=== PATIENT | female | born 2000 | race Caucasian/White ===

== ENCOUNTER 2022-11-02 02:39 | Inpatient (IN) ==
[2022-11-02] MEDS ORDERED: OXYTOCIN 30 UNITS/500 ML BAG IV PRN ×2 (03:31→12:01)
[2022-11-02] MEDS ORDERED: LIDOCAINE 1% LOCAL 20 ML VIAL INFIL PRN (03:31)
--- NOTE | 2022-11-02 03:35 | History & Physical Report ---
Date of Service November 02, 2022 Assessment & Plan (1) with 39 completed weeks gestation: Plan gross srom. admit. pitocin as desires. pit as needed. fetus category one. anticipate . History of Present Illness Chief Complaint: lof and contractions Primary Care Provider: NO PCP Patient is a 22yowf with iup at 39 6/7 weeks who presents to labor and delivery after having a gush of fluid about 1:30. Pad was dry on admission. No vb. +fm. Patient laid down for spec exam, had a contractions and leaked clear fluid. SSE positive. and Delivery Plans Obesity (BMI 40 and higher @ beginning of ) BMI 42 *Growth US @ 32wks *Weekly NSTs @ 34wks *BMI 40 or greater offer detailed/level II anatomy at [facility] -Undecided *BMI 50 or greater scheduled detailed/level II anatomy at [facility] Need for Rhogam due to RH Negaitve Mother. *Rhogam given 03/01/22 in ED *Rhogam given 08/17/22 OB Labs: Antibody Screen NEGATIVE 08/17/22 Hemoglobin 11.6 g/dl (12.0-16.0) L 08/17/22 Hematocrit 35.5 % (37.0-47.0) L 08/17/22 Rubella IgG Antibody Immune (Immune) 03/23/22 Rapid Plasma Reagin Nonreactive (Nonreactive) 03/23/22 Hepatitis B Surface Antigen. NON-REACTIVE (NON-REACTIVE) 03/23/22 Hepatitis C Antibody (EIA) NON-REACTIVE (NON-REACTIVE) 03/23/22 HIV (1&2) Ag and Ab Confirmation NON-REACTIVE (NON-REACTIVE) 03/23/22 Glucose 1 Hour 50 gm Load 124 mg/dl (70-130) 08/17/22 OB Optional Labs: Chlamydia trachomatis RNA Not Detected (NotDetected) 03/23/22 Neisseria gonorrhoeae RNA Not Detected (NotDetected) 03/23/22 Labs Reviewed: 03/01/22- HGB-11.3 HCT-34.4 RCV-87.1 Plt Count-325 Blood Type and screen-B Negative cfdna-low risk--mln gbs neg Allergies Allergy/AdvReac Type Severity Reaction Status Date / Time No Known Allergies Allergy Verified 10/26/22 09:57 Home Medications Medication Instructions Recorded Confirmed Type prenat.vits,tej,xwc-kvwd-kwubz 1 tab PO DAILY 03/06/22 11/02/22 History Patient History Medical History (Updated 11/02/22 @ 03:38 by Jeniffer Winn MD, FACOG) Obesity affecting Surgical History S/P tonsillectomy Family History Sister ADHD Social History Smoking Status: Never smoker Do You Dip or Chew Tobacco: No; Hx Alcohol Use: No Hx Substance Use: No Preferred Language: Beninese Communication Ability: Effective Plating Equipment Tender Required: No Beliefs That Will Affect Care: None marital status: marital status details: Kevin (22) [phone] Current Living Situation: Spouse Current Living Situation Comment: lives with spouse, cats, spouse to change lit ter. current occupational status: employed current occupation: [employer]. Other Information That Helps Us Care for You: No Feels Safe at Home: Yes Safety Concerns: Feels Safe At This Time Assistive Devices: None OB History g1--present COMPENSATION EXPERT History noncontributory Physical Exam Constitutional: WD/WN, vitals as above Gastrointestinal (Abdomen): obese, gravid, nt Psychiatric: A+Ox3, euthymic affect Genitourinary: sse--+pool sve--1/75/-2 toco--q4-5min efm--130s with mod variablity, accels to 160s, no decels Results & Data Vital Signs (Past 12 Hours) Vital Signs Temp Pulse Resp BP 11/02/22 03:00 37.3 C 18 11/02/22 02:57 82 119/62 Coding Level of Care Code None Diagnoses with 39 completed weeks gestation Z3A.39
--- NOTE | 2022-11-02 07:01 | Labor Progress Brief Note ---
Date of Service November 02, 2022 Subjective Patient notes contractions more painful. Assessment & Plan (1) with 39 completed weeks gestation: Plan making change, cont current management. fetus category one. Admission and Anticipated Discharge Date Admission Date: November 02, 2022 Physical Exam Physical Exam: cx--3/-2 toco--q2-4min efm--130s wtih mod variability, accels to 160s, no decels. Results & Data Vital Signs (Past 12 Hours) Vital Signs Temp Pulse Resp BP 11/02/22 03:00 37.3 C 18 11/02/22 05:29 18 11/02/22 05:29 36.8 C 18 11/02/22 02:57 82 119/62 Coding Level of Care Code None Diagnoses with 39 completed weeks gestation Z3A.39
[2022-11-02] MEDS: LACTATED RINGER'S 1,000 ML IV PRN ×2 (08:20→23:24)
[2022-11-02 08:58] LABS: Hematocrit (blood only) 34.1 % (37.0-47.0); Hemoglobin 11.5 g/dl (12.0-16.0); Mean Corpuscular Hemoglobin 28.9 pg (25.0-34.0); Mean Corpuscular Hgb Conc 33.7 g/dL (32.0-36.0); Mean Corpuscular Volume 85.7 fL (80.0-100.0); Mean Platelet Volume 10.6 fL (9.4-12.4); Platelet Count 310 K/uL (130-400); RDW Coefficient of Variation 13.6 % (11.5-14.5); RDW Standard Deviation 42.5 fL (36.4-46.3); Red Blood Count 3.98 M/uL (4.20-5.40); White Blood Count 13.92 K/ul (4.8-10.8)
--- NOTE | 2022-11-02 12:05 | Labor Progress Brief Note ---
Date of Service November 02, 2022 Subjective Reason For Note: Routine Evaluation Assessment & Plan (1) with 39 completed weeks gestation: (2) SROM (spontaneous rupture of membranes): Plan Serenity is a 22-year-old at 39 weeks 6 days gestational with spontaneous rupture of membranes. 1. Fetus: Cat 1 2. Labor: Cervix unchanged over 5 hours. Recommended oxytocin which patient was agreeable to. 3. GBS Negative 4. Vitals: WNL Admission and Anticipated Discharge Date Admission Date: November 02, 2022 Physical Exam Genitourinary: Manual OB Exam: + cervical dilation 3 cm, + cervical effacement 70%, + station -2 and + amniotic fluid clear OB Exam Monitor Tracing: + external FHT monitor used, + external uterine monitor used, + category I and + normal FHT variability; no early decelerations present, no late decelerations present and no variable decelerations Results & Data Vital Signs (Past 12 Hours) Vital Signs Temp Pulse Resp BP 11/02/22 03:00 37.3 C 18 11/02/22 08:25 20 11/02/22 08:25 37.0 C 20 11/02/22 07:00 37.3 C 69 20 124/75 11/02/22 05:29 18 11/02/22 05:29 36.8 C 18 11/02/22 02:57 82 119/62 Coding Level of Care Code None Diagnoses with 39 completed weeks gestation Z3A.39 SROM (spontaneous rupture of membranes)
[2022-11-02] MEDS ORDERED: CALCIUM CARBONATE 500 MG CHEWABLE TAB PO PRN (13:23)
[2022-11-02] MEDS ORDERED: NALBUPHINE HCL INJ 10 MG/ML AMP IV PRN (13:59)
[2022-11-02] MEDS ORDERED: SODIUM CHLORIDE 0.9% PF INJ 10 ML VIAL ONE (13:59)
[2022-11-02] MEDS ORDERED: SODIUM CHLORIDE 0.9% PF INJ 10 ML VIAL EPI PRN (13:59)
[2022-11-02] MEDS ORDERED: fentaNYL citrate PF 100 MCG/2 ML VIAL ONE (13:59)
[2022-11-02] MEDS ORDERED: LIDOCAINE 2% MPF LOCAL 5 ML VIAL EPI PRN (13:59)
[2022-11-02] MEDS ORDERED: fentaNYL citrate PF 100 MCG/2 ML VIAL EPI STA (13:59)
[2022-11-02] MEDS ORDERED: diphenhydrAMINE 50 MG/ML VIAL IV PRN (13:59)
[2022-11-02] MEDS ORDERED: ONDANSETRON INJ 2 MG/ML 2 ML VIAL IV PRN (13:59)
[2022-11-02] MEDS ORDERED: ROPIVACAINE 0.5% PF 5 MG/ML 20 ML VIAL EPI PRN (13:59)
[2022-11-02] MEDS ORDERED: NALOXONE HCL 0.4 MG/1 ML VIAL/CARP IV PRN (13:59)
[2022-11-02] MEDS ORDERED: ePHEDrine sulfate 50 MG/ML AMP ONE (13:59)
[2022-11-02] MEDS ORDERED: BUPIVACAINE 0.25% PF 30 ML VIAL EPI PRN (13:59)
[2022-11-02] MEDS ORDERED: ePHEDrine sulfate 50 MG/ML AMP IV PRN (13:59)
[2022-11-02] MEDS ORDERED: fentaNYL 2MCG/ML ROPIVACAINE 1.25MG/ML 100 ML BAG EPI PRN (13:59)
[2022-11-02] MEDS ORDERED: NALOXONE HCL 1 MG in SODIUM CHLORIDE 0.9% 1000ML 1,000 ML IV PRN (13:59)
[2022-11-02] MEDS ORDERED: SODIUM CHLORIDE 0.9% PF INJ 10 ML VIAL EPI STA (13:59)
[2022-11-02] MEDS ORDERED: BUPIVACAINE 0.25% PF 30 ML VIAL EPI STA (13:59)
[2022-11-02] MEDS ORDERED: LIDOCAINE 2%/EPINEPHRINE 1:200,000 20 ML PF EPI STA (13:59)
[2022-11-02] MEDS ORDERED: fentaNYL citrate PF 100 MCG/2 ML VIAL EPI PRN (13:59)
[2022-11-02] MEDS ORDERED: LIDOCAINE 2%/EPINEPHRINE 1:200,000 20 ML PF ONE ×2 (14:00→23:22)
[2022-11-02] MEDS ORDERED: BUPIVACAINE 0.25% PF 30 ML VIAL ONE (14:00)
[2022-11-02] MEDS ORDERED: fentaNYL 2MCG/ML ROPIVACAINE 1.25MG/ML 100 ML BAG EPI ONE (14:00)
--- NOTE | 2022-11-02 22:52 | Labor Progress Brief Note ---
Date of Service November 02, 2022 Subjective Patient fatigued and asking about moving to section. FOB, patient, and patient's mom via speakerphone participate in discussion with this MD about current progress; last two checks of cervix several hours apart have shown progress, although slow, from 8cm to 9cm but still not 100% effaced and station remains high with a narrow-feeling pelvic outlet. heart tones have been intermittently Cat2 and pitocin has been unable to be used for much of the eveni ng due to protocol. Discussed there is no absolute indication to move to at this time, no emergency, but there are hints that achieving vaginal delivery could be several hours away or may not ultimately be possible due to intolerance. The only way to know is to continue attempting augmentation and resuscitative measures and see what happens over the coming hours. Their priority is a healthy baby regardless of route of delivery, and they are interested in abandoning labor augmentation and proceeding with delivery at this time. Assessment & Plan (1) SROM (spontaneous rupture of membranes): Plan: Patient admitted with SROM in very early labor at 1cm; augmentation through the day today, with slow progress through the last few centimeters, and intermittent Cat 2 FHT. Patient is fatigued, worried about stress on the baby, and would like to abandon augmentation and move to at this time. Consent process completed, all questions answered to stated satisfaction, and will proceed as requested. Admission and Anticipated Discharge Date Admission Date: November 02, 2022 Physical Exam Genitourinary: /-2 FHT Cat 2 with intermittent late decels, most recently with pit @ 2 (which was then stopped) [place] Q3[facility] Results & Data Vital Signs (Past 12 Hours) Vital Signs Temp Pulse Resp BP Pulse Ox 11/02/22 19:15 98.8 F 18 11/02/22 22:44 78 128/64 11/02/22 22:43 83 96 11/02/22 22:38 83 95 11/02/22 22:33 83 94 11/02/22 22:29 76 126/64 11/02/22 22:28 78 95 11/02/22 22:23 78 95 11/02/22 21:30 18 11/02/22 21:30 99.1 F 18 11/02/22 22:18 92 H 95 07/28/23 22:16 83 125/82 11/02/22 22:13 84 96 11/02/22 22:10 82 94 11/02/22 22:08 90 96 11/02/22 22:03 94 11/02/22 22:03 85 11/02/22 22:03 87 94 11/02/22 21:59 76 95/51 L 11/02/22 21:58 75 94 11/02/22 21:57 76 94 11/02/22 21:53 79 94 11/02/22 21:52 77 94 11/02/22 21:48 78 95 11/02/22 21:47 87 94 11/02/22 21:44 95 H 101/59 L 11/02/22 21:43 88 95 11/02/22 21:40 86 94 11/02/22 21:38 88 94 11/02/22 21:33 95 11/02/22 21:33 91 H 11/02/22 21:33 89 93 11/02/22 21:29 83 116/58 L 11/02/22 21:28 88 94 11/02/22 21:25 87 94 11/02/22 21:23 100 H 95 11/02/22 21:20 81 94 11/02/22 21:18 85 95 11/02/22 21:14 78 94 11/02/22 21:15 76 116/55 L 11/02/22 21:13 85 95 11/02/22 21:09 89 94 11/02/22 21:08 96 H 95 11/02/22 21:03 94 11/02/22 21:03 82 11/02/22 21:03 79 94 11/02/22 20:58 85 95 11/02/22 20:59 82 124/60 11/02/22 20:57 82 94 11/02/22 20:53 82 94 11/02/22 20:50 82 94 11/02/22 20:48 77 94 11/02/22 20:45 94 11/02/22 20:45 83 07 20:45 82 130/77 11/02/22 20:43 97 H 95 11/02/22 20:40 94 H 94 11/02/22 20:38 81 95 11/02/22 20:33 77 95 11/02/22 20:28 93 11/02/22 20:28 99 H 11/02/22 20:29 80 125/75 11/02/22 20:28 86 94 11/02/22 20:23 96 11/02/22 20:23 83 11/02/22 20:23 86 94 11/02/22 20:18 82 95 11/02/22 20:14 77 121/68 11/02/22 20:13 77 95 11/02/22 20:08 79 95 11/02/22 20:03 85 95 11/02/22 20:00 124/95 11/02/22 19:58 77 95 11/02/22 19:57 70 94 11/02/22 19:53 81 98 11/02/22 19:48 68 98 11/02/22 19:44 77 112/56 L 11/02/22 19:43 75 97 11/02/22 19:38 72 98 11/02/22 19:33 71 97 11/02/22 19:28 70 97 11/02/22 19:29 68 109/55 L 11/02/22 19:23 64 97 11/02/22 19:18 72 98 11/02/22 19:14 73 114/56 L 11/02/22 19:13 80 98 11/02/22 19:08 72 98 11/02/22 19:03 70 98 11/02/22 18:58 63 98 11/02/22 18:59 79 113/56 L 11/02/22 18:53 63 98 11/02/22 18:48 70 98 11/02/22 18:46 67 118/59 L 11/02/22 18:43 69 98 11/02/22 18:38 74 98 11/02/22 18:33 70 98 11/02/22 18:30 62 117/59 L 11/02/22 18:28 76 98 11/02/22 18:23 64 98 11/02/22 18:18 62 98 11/02/22 18:14 61 122/60 11/02/22 18:13 64 98 11/02/22 18:10 16 11/02/22 18:10 98.4 F 16 11/02/22 18:08 66 98 11/02/22 18:03 74 98 11/02/22 17:59 69 127/66 11/02/22 17:58 71 98 0728/23 17:53 73 98 11/02/22 17:48 63 98 11/02/22 17:45 78 123/62 11/02/22 17:43 83 96 11/02/22 17:38 66 95 11/02/22 17:33 63 97 11/02/22 17:30 65 113/52 L 11/02/22 17:28 71 97 11/02/22 17:23 69 97 11/02/22 17:18 69 96 11/02/22 17:15 99.3 F 62 18 108/58 L 11/02/22 17:13 71 97 11/02/22 17:08 68 97 11/02/22 17:03 60 97 11/02/22 16:58 71 97 11/02/22 16:53 68 95 11/02/22 16:52 72 94 11/02/22 16:48 74 95 11/02/22 16:47 71 94 11/02/22 16:44 71 135/70 11/02/22 16:43 68 96 11/02/22 16:38 70 95 11/02/22 16:33 98.8 F 80 18 96 11/02/22 16:30 61 124/57 L 11/02/22 16:28 63 93 11/02/22 16:27 63 94 11/02/22 16:23 65 93 11/02/22 16:18 95 11/02/22 16:18 64 11/02/22 16:18 66 93 11/02/22 16:15 80 116/72 11/02/22 16:13 66 93 11/02/22 16:10 64 94 11/02/22 16:08 66 95 11/02/22 16:03 68 96 11/02/22 16:00 65 119/58 L 11/02/22 15:58 72 96 11/02/22 15:53 76 97 11/02/22 15:48 73 96 11/02/22 15:43 71 96 11/02/22 15:44 64 117/60 11/02/22 15:38 77 97 11/02/22 15:33 71 97 11/02/22 15:29 71 122/56 L 11/02/22 15:28 75 97 11/02/22 15:23 74 96 11/02/22 15:18 71 96 07/28/23 15:13 74 95 11/02/22 15:08 68 96 11/02/22 15:03 67 96 11/02/22 14:59 73 97/50 L 11/02/22 14:58 75 94 11/02/22 14:53 81 97 11/02/22 14:48 72 97 11/02/22 14:43 76 97 11/02/22 14:44 69 99/75 L 11/02/22 14:38 67 97 11/02/22 14:33 73 98 11/02/22 14:31 74 131/56 L 11/02/22 14:28 75 96 11/02/22 14:26 74 103/55 L 11/02/22 14:23 71 95 11/02/22 14:20 78 114/60 11/02/22 14:18 88 97 11/02/22 14:16 70 92 11/02/22 14:13 68 97 11/02/22 14:08 78 97 11/02/22 14:03 72 96 11/02/22 12:00 98.4 F 11/02/22 13:04 18 11/02/22 13:04 98.4 F 18 11/02/22 11:21 20 11/02/22 11:21 98.4 F 20 11/02/22 13:12 69 126/65 Coding Level of Care Code None Diagnoses SROM (spontaneous rupture of membranes)
[2022-11-02] MEDS ORDERED: LACTATED RINGER'S 1,000 ML IV SCH (23:00)
[2022-11-02] MEDS ORDERED: CITRIC ACID/SODIUM CITRATE 15 ML UDC PO ONE (23:15)
--- NOTE | 2022-11-02 23:32 | Communication Note ---
Date of Service: November 02, 2022 c section called for intolerance of labor. epidural working well. will use epidural for surgical anesthesia.
[2022-11-02] MEDS ORDERED: MoRPHine SULFATE PF 1 MG/ML 10 ML AMP/VIAL ONE (23:57)
[2022-11-03] MEDS ORDERED: KETOROLAC 30 MG/ML VIAL ONE (00:30)
[2022-11-03] MEDS ORDERED: ONDANSETRON INJ 2 MG/ML 2 ML VIAL ONE (00:30)
[2022-11-03] MEDS ORDERED: OXYTOCIN 10 UNITS/ML VIAL ONE (00:31)
--- NOTE | 2022-11-03 00:48 | Anesthesiology Progress Note ---
Date of Service November 03, 2022 Anesthesia Post Procedure Vital Signs Vital Signs: Temp Pulse Resp BP Pulse Ox 11/02/22 19:15 37.1 C 18 11/02/22 03:00 37.3 C 18 11/03/22 00:46 89 98 11/03/22 00:42 81 115/59 L 11/02/22 23:35 111 H 94 11/02/22 23:33 112 H 95 11/02/22 23:29 86 127/69 11/02/22 23:28 90 94 11/02/22 23:23 80 95 11/02/22 23:18 82 94 11/02/22 23:14 77 123/63 11/02/22 23:13 90 94 11/02/22 23:08 95 11/02/22 23:08 85 11/02/22 23:08 80 94 11/02/22 23:03 75 95 11/02/22 23:02 76 94 11/02/22 22:58 84 94 11/02/22 22:59 81 129/70 11/02/22 22:55 84 94 11/02/22 22:53 81 96 11/02/22 22:48 91 H 95 11/02/22 22:44 78 128/64 11/02/22 22:43 83 96 11/02/22 22:38 83 95 11/02/22 22:33 83 94 11/02/22 22:29 76 126/64 11/02/22 22:28 78 95 11/02/22 22:23 78 95 11/02/22 21:30 18 11/02/22 21:30 37.3 C 18 11/02/22 22:18 92 H 95 11/02/22 22:16 83 125/82 11/02/22 22:13 84 96 11/02/22 22:10 82 94 11/02/22 22:08 90 96 11/02/22 22:03 94 11/02/22 22:03 85 11/02/22 22:03 87 94 11/02/22 21:59 76 95/51 L 11/02/22 21:58 75 94 11/02/22 21:57 76 94 11/02/22 21:53 79 94 11/02/22 21:52 77 94 11/02/22 21:48 78 95 11/02/22 21:47 87 94 11/02/22 21:44 95 H 101/59 L 11/02/22 21:43 88 95 11/02/22 21:40 86 94 11/02/22 21:38 88 94 11/02/22 21:33 95 11/02/22 21:33 91 H 11/02/22 21:33 89 93 11/02/22 21:29 83 116/58 L 11/02/22 21:28 88 94 11/02/22 21:25 87 94 11/02/22 21:23 100 H 95 11/02/22 21:20 81 94 11/02/22 21:18 85 95 11/02/22 21:14 78 94 11/02/22 21:15 76 116/55 L 11/02/22 21:13 85 95 11/02/22 21:09 89 94 11/02/22 21:08 96 H 95 11/02/22 21:03 94 11/02/22 21:03 82 11/02/22 21:03 79 94 11/02/22 20:58 85 95 11/02/22 20:59 82 124/60 11/02/22 20:57 82 94 11/02/22 20:53 82 94 11/02/22 20:50 82 94 11/02/22 20:48 77 94 11/02/22 20:45 94 11/02/22 20:45 83 11/02/22 20:45 82 130/77 11/02/22 20:43 97 H 95 11/02/22 20:40 94 H 94 11/02/22 20:38 81 95 11/02/22 20:33 77 95 11/02/22 20:28 93 11/02/22 20:28 99 H 11/02/22 20:29 80 125/75 11/02/22 20:28 86 94 11/02/22 20:23 96 11/02/22 20:23 83 11/02/22 20:23 86 94 11/02/22 20:18 82 95 11/02/22 20:14 77 121/68 11/02/22 20:13 77 95 11/02/22 20:08 79 95 11/02/22 20:03 85 95 11/02/22 20:00 124/95 11/02/22 19:58 77 95 11/02/22 19:57 70 94 11/02/22 19:53 81 98 11/02/22 19:48 68 98 11/02/22 19:44 77 112/56 L 11/02/22 19:43 75 97 11/02/22 19:38 72 98 11/02/22 19:33 71 97 11/02/22 19:28 70 97 11/02/22 19:29 68 109/55 L 11/02/22 19:23 64 97 11/02/22 19:18 72 98 11/02/22 19:14 73 114/56 L 11/02/22 19:13 80 98 11/02/22 19:08 72 98 11/02/22 19:03 70 98 11/02/22 18:58 63 98 11/02/22 18:59 79 113/56 L 11/02/22 18:53 63 98 11/02/22 18:48 70 98 11/02/22 18:46 67 118/59 L 11/02/22 18:43 69 98 11/02/22 18:38 74 98 11/02/22 18:33 70 98 11/02/22 18:30 62 117/59 L 11/02/22 18:28 76 98 11/02/22 18:23 64 98 11/02/22 18:18 62 98 11/02/22 18:14 61 122/60 11/02/22 18:13 64 98 11/02/22 18:10 16 11/02/22 18:10 36.9 C 16 11/02/22 18:08 66 98 11/02/22 18:03 74 98 11/02/22 17:59 69 127/66 11/02/22 17:58 71 98 11/02/22 17:53 73 98 11/02/22 17:48 63 98 11/02/22 17:45 78 123/62 11/02/22 17:43 83 96 11/02/22 17:38 66 95 11/02/22 17:33 63 97 11/02/22 17:30 65 113/52 L 11/02/22 17:28 71 97 11/02/22 17:23 69 97 11/02/22 17:18 69 96 11/02/22 17:15 37.4 C 62 18 108/58 L 11/02/22 17:13 71 97 11/02/22 17:08 68 97 11/02/22 17:03 60 97 11/02/22 16:58 71 97 11/02/22 16:53 68 95 11/02/22 16:52 72 94 11/02/22 16:48 74 95 11/02/22 16:47 71 94 11/02/22 16:44 71 135/70 11/02/22 16:43 68 96 11/02/22 16:38 70 95 11/02/22 16:33 37.1 C 80 18 96 11/02/22 16:30 61 124/57 L 11/02/22 16:28 63 93 11/02/22 16:27 63 94 11/02/22 16:23 65 93 11/02/22 16:18 95 11/02/22 16:18 64 11/02/22 16:18 66 93 11/02/22 16:15 80 116/72 11/02/22 16:13 66 93 11/02/22 16:10 64 94 11/02/22 16:08 66 95 11/02/22 16:03 68 96 11/02/22 16:00 65 119/58 L 11/02/22 15:58 72 96 11/02/22 15:53 76 97 11/02/22 15:48 73 96 11/02/22 15:43 71 96 11/02/22 15:44 64 117/60 11/02/22 15:38 77 97 11/02/22 15:33 71 97 11/02/22 15:29 71 122/56 L 11/02/22 15:28 75 97 11/02/22 15:23 74 96 11/02/22 15:18 71 96 11/02/22 15:13 74 95 11/02/22 15:08 68 96 11/02/22 15:03 67 96 11/02/22 14:59 73 97/50 L 11/02/22 14:58 75 94 11/02/22 14:53 81 97 11/02/22 14:48 72 97 11/02/22 14:43 76 97 11/02/22 14:44 69 99/75 L 11/02/22 14:38 67 97 11/02/22 14:33 73 98 11/02/22 14:31 74 131/56 L 11/02/22 14:28 75 96 11/02/22 14:26 74 103/55 L 11/02/22 14:23 71 95 11/02/22 14:20 78 114/60 11/02/22 14:18 88 97 11/02/22 14:16 70 92 11/02/22 14:13 68 97 11/02/22 14:08 78 97 11/02/22 14:03 72 96 11/02/22 12:00 36.9 C 11/02/22 13:04 18 11/02/22 13:04 36.9 C 18 11/02/22 10:26 37.0 C 11/02/22 11:21 20 11/02/22 11:21 36.9 C 20 11/02/22 09:55 18 11/02/22 09:55 37.0 C 11/02/22 13:12 69 126/65 11/02/22 08:25 20 11/02/22 08:25 37.0 C 20 11/02/22 07:00 37.3 C 69 20 124/75 11/02/22 05:29 18 11/02/22 05:29 36.8 C 18 11/02/22 02:57 82 119/62 Pain Intensity Lower Abdomen: Pain Intensity: 2 Transfer of Care Handoff Completed per policy Notes Mental Status: alert / awake / arousable Nausea / Vomiting: adequately controlled Pain: adequately controlled Airway Patency, RR, SpO2: stable & adequate BP & HR: stable & adequate Hydration State: stable & adequate Neuraxial Anesthesia: was administered and sensory block is resolving Anesthetic Complications: no major complications apparent and Pt Satisfied with anesthetic care
--- NOTE | 2022-11-03 00:48 | Anesthesia Procedure Note ---
Date of Service November 03, 2022 Anesthesia Post Epidural Note Vital Signs Vital Signs: Temp Pulse Resp BP Pulse Ox 37.3 C 89 18 115/59 L 98 11/02/22 21:30 11/03/22 00:46 11/02/22 21:30 11/03/22 00:42 11/03/22 00:46 Pain Intensity Lower Abdomen: Pain Intensity: 2 Notes Mental Status: alert / awake / arousable Nausea / Vomiting: adequately controlled Pain: adequately controlled Airway Patency, RR, SpO2: stable & adequate BP & HR: stable & adequate Hydration State: stable & adequate Neuraxial Anesthesia: was administered and sensory block is resolving Anesthetic Complications: no major complications apparent and Pt Satisfied with anesthetic care Epidural: Removed without complications and With tip intact
[2022-11-03] MEDS ORDERED: MoRPHine SULFATE 2 MG/ML CARP IV PRN (00:49)
[2022-11-03] MEDS ORDERED: PROMETHAZINE HCL 6.25 MG in SODIUM CHLORIDE 0.9% 50 ML IV PRN (00:49)
[2022-11-03] MEDS ORDERED: ePHEDrine sulfate 50 MG/ML AMP IV PRN (00:49)
[2022-11-03] MEDS ORDERED: HYDROmorphone INJ 0.5 MG/0.5 ML SYR IV PRN (00:49)
[2022-11-03] MEDS ORDERED: NALOXONE HCL 0.08 MG in SYRINGE 1.8 ML IV PRN (00:49)
[2022-11-03] MEDS ORDERED: NALOXONE HCL 1 MG in SODIUM CHLORIDE 0.9% 1000ML 1,000 ML IV PRN (00:49)
[2022-11-03] MEDS ORDERED: NALBUPHINE HCL INJ 10 MG/ML AMP IV PRN (00:49)
[2022-11-03] MEDS ORDERED: NALOXONE HCL 0.4 MG/1 ML VIAL/CARP IV PRN (00:49)
[2022-11-03] MEDS ORDERED: MEPERIDINE HCL 25 MG/ML CARP/VIAL IV PRN (00:49)
[2022-11-03] MEDS ORDERED: KETOROLAC 30 MG/ML VIAL IV PRN ×2 (00:49→18:49)
[2022-11-03] MEDS ORDERED: ONDANSETRON INJ 2 MG/ML 2 ML VIAL IV PRN ×2 (00:49→18:49)
[2022-11-03] MEDS ORDERED: LACTATED RINGER'S 500 ML IV PRN (00:49)
[2022-11-03] MEDS ORDERED: diphenhydrAMINE 50 MG/ML VIAL IV PRN ×2 (00:49→18:49)
[2022-11-03] MEDS ORDERED: MoRPHine SULFATE PF 1 MG/ML 10 ML AMP/VIAL INT SPINAL ONE (00:49)
[2022-11-03 00:50] LABS: Base Excess Cord Arterial Bld -3.9 mEq/L (-9-1.8); Base Excess Cord Venous Blood -1.3 mEq/L (-7.7-1.9); CO2 Cord Arterial Blood 54 mmHg (39.1-73.5); Cord Venous Blood HCO3 25 mmol/L (18.4-26.8); Cord Venous Blood PCO2 46 mmHg (30.4-57.2); Cord Venous Blood PO2 21 mmHg (14.1-43.3); Cord Venous Blood pH 7.34 (7.20-7.44); HCO3 Cord Arterial Blood 24 mmol/L (19.7-28.5); O2 Saturation Cord Venous Bld < 60.0 % (<68); Oxygen Sat Cord Arterial Blood < 60.0 % (<60); PO2 Cord Arterial Blood 12 mmHg (4.1-31.7); pH Cord Arterial Blood 7.26 (7.1-7.38)
[2022-11-03] MEDS ORDERED: DC INTRASPINAL MORPHINE SCH (01:00)
[2022-11-03] MEDS ORDERED: SODIUM CHLORIDE 0.9% 1000ML 1,000 ML IV SCH (01:00)
[2022-11-03] MEDS ORDERED: NO NARCOTICS OR SEDATIVES SCH (01:00)
[2022-11-03] MEDS ORDERED: BENZOCAINE 20% SPRY 85 APPLN/85 GM CAN EXT PRN (01:01)
[2022-11-03] MEDS ORDERED: DIPHTHERIA/TETANUS/PERTUSSIS Vaccine (Tdap, Age 7+yrs) 0.5mL SYR/VL IM ONE (01:01)
[2022-11-03] MEDS ORDERED: HYDROCORTISONE ACETATE 25 MG SUPP PR PRN (01:01)
[2022-11-03] MEDS ORDERED: SENNA 8.6 MG TAB PO PRN (01:01)
[2022-11-03] MEDS ORDERED: MAGNESIUM HYDROXIDE SUSP 30 ML UDC PO PRN (01:01)
[2022-11-03] MEDS: OXYTOCIN 30 UNITS in LACTATED RINGER'S 1,000 ML IV SCH ×2 (01:22→10:13)
[2022-11-03] MEDS: SIMETHICONE 80 MG CHEW PO SCH ×4 (07:50→21:16)
[2022-11-03] MEDS: DOCUSATE SODIUM 100 MG CAP PO SCH ×2 (07:50→21:16)
[2022-11-03] MEDS: PRENATAL VITAMIN 1 TAB PO SCH (07:50)
[2022-11-03] MEDS: FERROUS SULFATE 325 MG TAB PO SCH (07:50)
[2022-11-03] MEDS ORDERED: LACTATED RINGER'S 1,000 ML IV SCH (17:30)
[2022-11-03] MEDS ORDERED: oxyCODONE/ACETAMINOPHEN 5mg/325mg TAB PO PRN (18:49)
[2022-11-03] MEDS ORDERED: diphenhydrAMINE Capsule 25 MG CAP PO PRN (18:49)
[2022-11-03] MEDS ORDERED: PROMETHAZINE HCL 25 MG in SODIUM CHLORIDE 0.9% 50 ML IV PRN (18:49)
[2022-11-03] MEDS ORDERED: MEPERIDINE HCL 50 MG/ML CARP IV PRN (18:49)
[2022-11-03] MEDS: IBUPROFEN 600 MG TAB PO PRN (23:29)
[2022-11-04] MEDS: IBUPROFEN 600 MG TAB PO PRN ×5 (05:26→21:51)
[2022-11-04 05:55] LABS: Basophils # (auto) 0.05 K/uL (0-0.2); Basophils % (auto) 0.3 %; Eosinophils # (auto) 0.12 K/uL (0-0.50); Eosinophils % (auto) 0.8 %; Hemoglobin 9.9 g/dl (12.0-16.0); Immature Granulocytes # (auto) 0.08 K/uL (0.01-0.20); Immature Granulocytes % (auto) 0.5 %; Lymphocytes # (auto) 2.25 K/uL (1.2-3.4); Lymphocytes % (auto) 14.5 %; Mean Corpuscular Hemoglobin 28.9 pg (25.0-34.0); Mean Corpuscular Volume 87.5 fL (80.0-100.0); Mean Platelet Volume 10.8 fL (9.4-12.4); Monocytes # (auto) 1.06 K/uL (0.11-0.59); Monocytes % (auto) 6.8 %; Neutrophils # (auto) 12.01 K/uL (1.40-6.50); Neutrophils % (auto) 77.1 %; Platelet Count 241 K/uL (130-400); RDW Standard Deviation 44.2 fL (36.4-46.3); Red Blood Count 3.43 M/uL (4.20-5.40); White Blood Count 15.57 K/ul (4.8-10.8)
--- NOTE | 2022-11-04 08:32 | Obstetrical Progress Note ---
Date of Service November 04, 2022 Assessment & Plan (1) Encounter for care and examination after delivery: Day 2 status post section. Doing well. Routine care Subjective Ambulation: ambulating normally Voiding: no voiding problems Passing Gas:: Yes Diet Tolerance:: regular diet Lochia:: Moderate Feeding Type:: breast feeding Physical Exam Constitutional WD/WN, vitals as above Respiratory normal respiratory effort; no respiratory distress and no labored breathing Gastrointestinal (Abdomen) Inspection/Auscultation: abdomen normal to inspection; abdomen not distended Percussion/Palpation: abdomen soft; abdomen nontender, no guarding and abdomen not rigid Genitourinary OB Exam Abdomen: + fundal height Fundus: + firm and + relation to umbilicus (Below); not tender or not boggy Results & Data Vital Signs (Past 12 Hours) Vital Signs Temp Pulse Resp BP Pulse Ox O2 Del Method 11/03/22 23:25 36.9 C 85 18 101/66 97 Room Air
[2022-11-04] MEDS: SIMETHICONE 80 MG CHEW PO SCH ×4 (09:25→20:15)
[2022-11-04] MEDS: DOCUSATE SODIUM 100 MG CAP PO SCH ×2 (09:25→20:15)
[2022-11-04] MEDS: FERROUS SULFATE 325 MG TAB PO SCH (09:25)
[2022-11-04] MEDS: PRENATAL VITAMIN 1 TAB PO SCH (09:26)
[2022-11-04] MEDS ORDERED: bisacodyL 5 MG TABEC PO SCH (20:00)
[2022-11-05] MEDS ORDERED: bisacodyL 10 MG SUPP PR PRN (00:34)
[2022-11-05] MEDS: IBUPROFEN 600 MG TAB PO PRN ×2 (01:52→08:01)
[2022-11-05 06:52] LABS: Hemoglobin 10.3 g/dl (12.0-16.0)
--- NOTE | 2022-11-05 06:59 | Obstetrical Progress Note ---
Date of Service <Ariella Garcia MD - Last Filed: 11/05/22 07:33> November 05, 2022 Assessment & Plan <Ariella Garcia MD - Last Filed: 11/05/22 07:33> (1) Encounter for care and examination after delivery: Patient with the above mentioned history and findings was evaluated at bedside and found awake, alert, oriented in all spheres, afebrile, and in no acute distress. Overall, patient is doing well clinically. Therefore, will encourage ambulation as tolerated and will resume regular diet. Will continue monitoring pain levels and management with Motrin PRN. Patient is encouraged to breastfeed and to notify changes in normal lochia such as excessive bleeding (using more than 1 pad per hour), foul smell, or purulent appearance. Patient was counselled on discharge instructions. She is to make an appointment with her OB for 6 weeks after discharge for follow up evaluation. All questions were answered. <Alexis Alonzo MD - Last Filed: 11/05/22 08:30> (1) Encounter for care and examination after delivery: Subjective <Ariella Garcia MD - Last Filed: 11/05/22 07:33> Serenity is a 22 y/o female who is POD #3 following delivery at 40 0/7 weeks due to intolerance to labor. She reports feeling well overall this morning. She refers mild to moderate abdominal cramping & 2/10 pain well managed on analgesics. Voiding spontaneously without issues. Tolerating meals overnight and able to ambulate some. She is passing gas and has had bowel movements. Has some persistent lochia with some improvement this morning. Currently bottle feeding and attempting to breastfeed. Her blood type is B negative and she was given Rhogam on 11/03/2022. Her most recent hemoglobin is 10.3. She denies any symptom of anemia such as palpit ations, lightheadedness, syncope, SOB, syncope, or any other symptom. She is GBS negative and rubella immune. Constitutional: no fever, no chills or no sweats Denies shortness of breath or difficulty breathing. Cardiovascular: no chest pain or no palpitations Breast: no breast pain Genitourinary (female): no dysuria Neurologic: no headache(s) Denies changes in vision. Physical Exam <Ariella Garcia MD - Last Filed: 11/05/22 07:33> General: Alert. Oriented to person, time, and place. Afebrile. No acute distress. Eyes: pupils equal and reactive to light bilaterally, extraocular movements intact. Cardiac: Regular rate and rhythm, no murmurs/rubs/gallops. Respiratory: Clear to auscultation bilaterally a/p, no wheezes/rales/rhonchi. No increased work of breathing. Symmetrical chest rise. No respiratory distress. Abdomen: Soft, nontender, nondistended. Bowel sounds present. Low transverse surgical scar clean, without surrounding erythema or suppuration, and healing well. There is some yellowish-green discoloration just above the midline of her surgical scar that does not involve the incision which appears to be some bruising. Uterus: Uterine fundus firm, non-tender, and palpable below umbilicus. Lower Extremities: Mild lower extremity swelling without pitting bilaterally. No deep calf pain. Emily's negative bilaterally. Psych: Euthymic affect. Mood and affect congruence. Regular speech rate and content. Results & Data <Ariella Garcia MD - Last Filed: 11/05/22 07:33> Vital Signs (Past 12 Hours) Vital Signs Temp Pulse Resp BP Pulse Ox O2 Del Method 11/04/22 23:50 36.7 C 85 18 111/70 Room Air 11/04/22 20:30 36.7 C 83 18 110/71 96 Room Air 11/04/22 20:30 Room Air <Alexis Alonzo MD - Last Filed: 11/05/22 08:30> Co-Signing Physician Notes Patient seen with resident and agree with the above findings and plan. Stable for discharge Resident Activity Tracking <Ariella Garcia MD - Last Filed: 11/05/22 07:33> Resident Involvement: Resident Care Provided Care Provided: OB Delivery
[2022-11-05] MEDS: FERROUS SULFATE 325 MG TAB PO SCH (08:02)
[2022-11-05] MEDS: DOCUSATE SODIUM 100 MG CAP PO SCH (08:02)
[2022-11-05] MEDS: SIMETHICONE 80 MG CHEW PO SCH (08:02)
[2022-11-05] MEDS: PRENATAL VITAMIN 1 TAB PO SCH (08:02)
--- NOTE | 2022-11-06 12:06 | Operative Report ---
PG Post Operative Report Pre & Post Diagnosis Operation Date: 11/03/22 00:00 Pre-Op Diagnosis: primary section for intolerance to labor maternal request to abandon labor augmentation Post-Op Diagnosis: same as above I identified the patient and participated in the time-out.: Yes Procedure Operation Date: 11/02/22 23:00 Actual Procedures Primary Low Transverse Section Surgeon Ceci Roberts MD Tracer Clerk Treva Yip RN Estimated Blood Loss 600 Findings Consistent with Post-Op Diagnosis Specimens Placenta, Cord Blood, Cord Gases Anesthesia Type L&D Only Epidural Exists Complications none Disposition Accompanied Patient To Recovery: Yes Disposition: L&D Description of Procedure The patient was placed operating table in the supine position with a leftward tilt. She was prepped and draped in standard sterile fashion. The anesthetic was tested and found to be adequate. A time-out was held, identifying correct patient, procedure, positioning and preoperative antibiotics. There were no concerns. A Pfannenstiel skin incision was made with a knife and taken down to the underlying layer of fascia. The fascia was incised in the midline with the knife and taken out laterally with scissors. The superior edge of the fascial incision was grasped, elevated and dissected off the underlying rectus both superiorly and inferiorly. The muscles were bluntly in the midline. The peritoneum was entered bluntly. The incision was then stretched. The Chris O-Ring retractor was inserted. The bladder retractor was placed. The vesicouterine peritoneum was identified, entered with scissors and taken out laterally with scissors. The bladder flap was created digitally. A hysterotomy incision was created transversely in the lower uterine segment, final entry being accomplished in a blunt manner with the calendering machine operator's fingers. Stained amniotic fluid was encountered. The calendering machine operator's hand was used to elevate the head to the hysterotomy. The head was delivered using mild fundal pressure, and the shoulders and body followed without difficulty. The cord was clamped and cut and the infant was then handed off to the awaiting packing clerk. Cord blood was obtained. A segment of the cord was isolated and sent off the field for collection of cord gas specimens. The placenta was Manually extracted. The uterus was left in situ and cleared of all clot and debris with moistened laparotomy sponges. The hysterotomy incision was repaired in two layers, the first in a running locked layer, the second in an imbricating layer. The ovaries and tubes were seen to be normal bilaterally. The gutters were cleared of clot and debris. A final inspection of the hysterotomy revealed good hemostasis. The Chris was removed. The rectus muscles were allowed to reapproximate naturally. The fascia was then reapproximated with 1 Vicryl in a running nonlocked manner. The fascia was examined and found to be free of defect following closure. The subcutaneous tissue was copiously irrigated and reapproximated with 0-chromic, then the skin edges were closed with 4-0 monocryl in a subcuticular fashion. A dermabond dressing was applied. The huerta was found to be draining clear yellow urine at completion of the procedure. I attest to the content of the Intraoperative Record and any orders documented therein. Any exceptions are noted below. I attest to the content of the Intraoperative Record and any orders documented therein. Any exceptions are noted below. OB Procedure Charges 62640
--- NOTE | 2022-11-06 12:07 | Discharge Summary ---
Date of Service November 06, 2022 Discharge Data Consultations 11/02/22 03:31 Consult Anesthesiology Stat Procedures Performed Operation Date: 11/02/22 23:00 Actual Procedures p Section in LD delivery of live male child at 0005 on 11/03(Not Applicable) - Ceci Roberts MD Coding Level of Care Code None Diagnoses
== END 2022-11-05 10:00 | disposition home or self-care (01) | DRG 788 ==
LOC: OPB 02:39 → 4S1 02:42 → 4E2 11-03 03:15

== ENCOUNTER 2022-11-10 02:12 | Inpatient (IN) ==
[2022-11-10] MEDS ORDERED: ACETAMINOPHEN 325 MG TAB PO PRN (03:50)
[2022-11-10] MEDS ORDERED: IBUPROFEN 600 MG TAB PO PRN (03:50)
--- NOTE | 2022-11-10 04:00 | History & Physical Report ---
Date of Service November 10, 2022 Assessment & Plan (1) Cellulitis, wound, post-operative: Plan: Patient is a 22-year-old -0-0-1 female status post low transverse section on 11/02/2022 and now presents with a wound cellulitis superior to her incision. The patient does show me pictures of her abdomen prior to starting the IV Rocephin earlier this evening. It is significantly erythematous to approximately 1 cm below her umbilicus at that time. Has been dramatic improvement in her cellulitis by 0300 hrs. Of note, her temperature was normal at [facility] ER and patient admits that her thermometer at home may not be functioning as her repeat temperature shortly after the initial temp of 101 F, was 98F without any tylenol or motrin. We will recheck a CBC at 8 AM and continue to monitor her temperature and vital signs. I suspect we will be able to send her home on Keflex 500 mg p.o. 4 times daily if her white count does not rise and she does not develop another fever. Patient and her are agreeable to this plan. History of Present Illness Primary Care Provider: NO PCP Patient is a 22-year-old 1 para 1-0-0-1 female who is status post section on 11/02/2022 at approximately 2300 hrs. her section was done because of arrest of dilation and intolerance of labor. She had an uncomplicated postoperative course And was sent home on 11/05/2022. Of note her white count postoperatively on 11/04/2022, was 15,000. She remained afebrile throughout her hospital stay. She was only taking ibuprofen for pain and had actually stopped her ibuprofen 2 days ago. She presented to [facility] emergency room this evening because of a temperature of 101 degrees and redness and soreness on her abdomen above her incision. The redness about the incision extended almost to her umbilicus and the abdominal wall was firm as well as red. She has not noted any drainage from the incision. She denies any malaise body aches or headaches although she felt she had more of a hot flash at the time that she took her temperature. While at [facility] emergency room she was given 1 dose of Rocephin IV and CBC and CT scan were performed. Her white count at [address] hrs[address] was 12,000. CT scan showed evidence of cellulitis superior to her incision consistent with what her clinical findings were and the ER physician noted that the induration and redness superior to her incision extended approximately 10 cm above her incision and based on his evaluation he felt that she should be transferred to [facility] for IV antibiotics. After the CT scan results were available,and in addition to the Rocephin dose , she was given 1 dose of IV vancomycin but this was stopped before it was completely administe red because of facial flushing. She was discharged from the [facility] emergency room as they do not have obstetric services there and transferred to our facility for further evaluation and observation. Her bleeding has been minimal since delivery. She is breast-feeding and bottlefeeding. She denies any nausea vomiting or any further fever or chills. She also denies any burning with urination. Allergies Allergy/AdvReac Type Severity Reaction Status Date / Time No Known Allergies Allergy Verified 10/26/22 09:57 Home Medications Medication Instructions Recorded Confirmed Type prenat.vits,tej,wmc-guul-cossh 1 tab PO DAILY 03/06/22 11/02/22 History oxycodone-acetaminophen 5 mg-325 1 tab PO Q4H PRN pain #20 tabs 11/05/22 Rx mg tablet (Percocet) Patient History Medical History (Updated 11/10/22 @ 04:11 by Marilynn Gamboa MD, FACOG) Obesity affecting Surgical History S/P tonsillectomy Family History Sister ADHD Social History Smoking Status: Never smoker Do You Dip or Chew Tobacco: No; Hx Alcohol Use: No Hx Substance Use: No Preferred Language: Maltese Communication Ability: Effective Staff Nurse Anesthetist Required: No Beliefs That Will Affect Care: None marital status: marital status details: Kevin (22) [phone] Current Living Situation: Spouse Current Living Situation Comment: lives with spouse, cats, spouse to change litter. current occupational status: employed current occupation: [employer]. Feels Safe at Home: Yes Assistive Devices: None Review of Systems All systems reviewed & are unremarkable except as noted in HPI & below Physical Exam Constitutional: WD/WN, vitals as above Gastrointestinal (Abdomen): Incision is intact and dry. there is now minimal redness superior to her incision but there is still induration present in the pannus fold just above the incision. mild tenderness with palpation of the abdomen Psychiatric: A+Ox3, euthymic affect Coding Level of Care Code 97372 OP VST EST LOW 20-29 MIN Diagnoses Cellulitis, wound, post-operative T81.49XA
--- NOTE | 2022-11-10 08:34 | Gynecologic Progress Note ---
Date of Service November 10, 2022 Assessment & Plan (1) Cellulitis, wound, post-operative: Plan: erythema is about the same as at admission 330 AM. will start keflex 500mg q6hrs for 7 days CBC pending follow up in office for incision this week on 11/14 or 11/15 Admission and Anticipated Discharge Date Admission Date: November 10, 2022 Subjective feels well. still afebrile. no increase in pain at incision site . Review of Systems Review of Systems: All systems reviewed & are unremarkable except as noted in HPI & below Physical Exam Constitutional: WD/WN, vitals as above Gastrointestinal (Abdomen): minimal erythema above incision. still indurated in pannus but no drainage from the incision and it is intact Psychiatric: A+Ox3, euthymic affect Results & Data Vital Signs (Past 12 Hours) Vital Signs Temp Pulse Pulse Resp BP BP Pulse Ox 11/10/22 08:20 98.1 F 74 18 135/67 11/10/22 03:30 98.1 F 76 16 131/76 98 O2 Del Method 11/10/22 08:20 11/10/22 03:30 Room Air PG Care Time/CCT Total # of Minutes Spent Total Time Spent with Patient: Total time spent is greater than 50% in coordination of care (as documented) at patient's floor/unit and/or counseling patient: Coding Level of Care Code 48032 Post Operative Follow-Up Diagnoses Cellulitis, wound, post-operative T81.49XA
[2022-11-10 08:45] LABS: Basophils # (auto) 0.04 K/uL (0-0.2); Basophils % (auto) 0.3 %; Eosinophils # (auto) 0.01 K/uL (0-0.50); Eosinophils % (auto) 0.1 %; Hematocrit (blood only) 33.8 % (37.0-47.0); Hemoglobin 11.2 g/dl (12.0-16.0); Immature Granulocytes # (auto) 0.22 K/uL (0.01-0.20); Immature Granulocytes % (auto) 1.6 %; Lymphocytes # (auto) 1.19 K/uL (1.2-3.4); Lymphocytes % (auto) 8.5 %; Mean Corpuscular Hemoglobin 28.6 pg (25.0-34.0); Mean Corpuscular Hgb Conc 33.1 g/dL (32.0-36.0); Mean Corpuscular Volume 86.2 fL (80.0-100.0); Mean Platelet Volume 10.1 fL (9.4-12.4); Monocytes # (auto) 0.21 K/uL (0.11-0.59); Monocytes % (auto) 1.5 %; Neutrophils # (auto) 12.38 K/uL (1.40-6.50); Platelet Count 378 K/uL (130-400); RDW Coefficient of Variation 13.4 % (11.5-14.5); RDW Standard Deviation 41.7 fL (36.4-46.3); Red Blood Count 3.92 M/uL (4.20-5.40); White Blood Count 14.05 K/ul (4.8-10.8)
[2022-11-10] MEDS: PRENATAL VITAMIN 1 TAB PO SCH (08:51)
[2022-11-10] MEDS: cephALEXin 500 MG CAP PO SCH ×4 (08:51→21:20)
[2022-11-10] MEDS ORDERED: GENTAMICIN CONSULT ACTIVE PRN (13:32)
[2022-11-10] MEDS ORDERED: DEXTROSE 5% IV STA ×2 (13:32→15:34)
[2022-11-10] MEDS ORDERED: GENTAMICIN SULFATE IV STA ×2 (13:32→15:34)
--- NOTE | 2022-11-10 13:38 | Gynecologic Progress Note ---
Date of Service November 10, 2022 Assessment & Plan Admission and Anticipated Discharge Date Admission Date: November 10, 2022 Subjective Asked to assess patient as her white blood cell count is now 14 apparently the redness has spread somewhat although it is more diffuse in color patient does feel okay she is not febrile however with an elevated white count and spreading of the redness on the incision I examined the patient at this time it is fairly indurated and firm above the incision no obvious fluctuance no drainage from the incision She is only on p.o. Keflex at this time I Eleonora switch her to IV clindamycin and gentamicin for at least 24 hours and observe this is discussed with the patient Results & Data Vital Signs (Past 12 Hours) Vital Signs Temp Pulse Pulse Resp BP BP Pulse Ox 11/10/22 09:25 125/65 11/10/22 08:20 98.1 F 74 18 135/67 11/10/22 03:30 98.1 F 76 16 131/76 98 O2 Del Method 11/10/22 09:25 11/10/22 08:20 11/10/22 03:30 Room Air PG Care Time/CCT Total # of Minutes Spent Total Time Spent with Patient: Total time spent is greater than 50% in coordination of care (as documented) at patient's floor/unit and/or counseling patient: Coding Level of Care Code None Diagnoses
[2022-11-10] MEDS: CLINDAMYCIN/D5W 600 MG/50 ML BAG IV SCH ×2 (14:40→22:24)
--- NOTE | 2022-11-10 15:11 | Pharmacy Report ---
Pharmacy PK ABX Note - Date of Service November 10, 2022 - Assessment and Plan Assessment * 22 year old F receiving cephalexin, clindamycin, and gentamicin for treatment of [id number] cellulitis ( 11/02). * SCr baseline 0.7 mg/dL back in February. Stat SCr ordered today and was again low at 0.6 mg/dL Gentamicin * Post-, utilize 5 mg/kg *acutal* body weight. Please note, that for this patient this is also 7.2 mg/kg adjusted body weight. However, still reasonable to dose and monitor via standard post- dosing, with only checking a trough level to monitor for toxicity risk. * CrCL > 60 mL/min - OK to use extended infusion * Usually no trough unless therapy may persist >72 hours. Will order a trough prior to 3rd dose in case this does go beyond that time Plan * Gentamicin 520 mg IV q24h * Trough level 11/12 @ 1530 Pharmacy will continue to follow and will adjust dose/frequency as necessary. Thank you. Pharmacy has transitioned to AUC monitoring for vancomycin. AUC/TATYANA is the preferred PK/PD target and is associated with decreased risk of nephrotoxicity compared to traditional trough targets.
[2022-11-10 15:12] LABS: Creatinine Clr Calc Pharmacy 165.3 ml/min; Est GFR (African American) 148.9 ml/min; Est GFR (Non-African American) 128.5 ml/min
[2022-11-10] MEDS ORDERED: LACTATED RINGER'S 1,000 ML IV SCH (16:15)
[2022-11-11] MEDS ORDERED: CITRIC ACID/SODIUM CITRATE 15 ML UDC PO SCH (06:00)
[2022-11-11] MEDS: CLINDAMYCIN/D5W 600 MG/50 ML BAG IV SCH ×3 (06:20→22:07)
[2022-11-11 07:08] LABS: Hematocrit (blood only) 35.6 % (37.0-47.0); Hemoglobin 11.5 g/dl (12.0-16.0); Mean Corpuscular Hemoglobin 28.1 pg (25.0-34.0); Mean Corpuscular Hgb Conc 32.3 g/dL (32.0-36.0); Mean Platelet Volume 9.9 fL (9.4-12.4); Platelet Count 441 K/uL (130-400); RDW Coefficient of Variation 13.5 % (11.5-14.5); RDW Standard Deviation 42.5 fL (36.4-46.3); Red Blood Count 4.09 M/uL (4.20-5.40); White Blood Count 13.45 K/ul (4.8-10.8)
[2022-11-11 07:24] LABS: Creatinine Clr Calc Pharmacy 135.9 ml/min; Est GFR (African American) 134.5 ml/min; Est GFR (Non-African American) 116.1 ml/min
--- NOTE | 2022-11-11 07:27 | Gynecologic Progress Note ---
Date of Service November 11, 2022 Assessment & Plan (1) Cellulitis, wound, post-operative: Plan: She has had 24 hours of clindamycin and gentamicin the incision is still fairly red her white count is slightly lower than yesterday's count of 14 however still elevated I would prefer to give 48 hours of IV antibiotics and then reassess if the redness does not improve would suggest repeat CT scan tomorrow to check for possible abscess. There is no drainage from the incision and the incision is not overly tender again to wait 48 hours for conservative therapy here and then reassess tomorrow morning Admission and Anticipated Discharge Date Admission Date: November 10, 2022 Subjective Patient's pain is improved she is not showing a elevation in temperature however her white count is still 13 this morning she is ambulating Results & Data Vital Signs (Past 12 Hours) Vital Signs Temp Pulse Pulse Resp BP Pulse Ox O2 Del Method 11/11/22 07:14 98.1 F 83 17 125/76 98 Room Air 11/11/22 05:00 98.2 F 84 18 112/57 L 98 Room Air 11/10/22 23:25 98.1 F 82 18 102/61 98 Room Air PG Care Time/CCT Total # of Minutes Spent Total Time Spent with Patient: Total time spent is greater than 50% in coordination of care (as documented) at patient's floor/unit and/or counseling patient: Coding Level of Care Code None Diagnoses Cellulitis, wound, post-operative T81.49XA
[2022-11-11] MEDS: cephALEXin 500 MG CAP PO SCH (09:43)
[2022-11-11] MEDS: PRENATAL VITAMIN 1 TAB PO SCH (09:43)
[2022-11-11] MEDS: DOCUSATE SODIUM 100 MG CAP PO SCH ×2 (12:24→22:07)
[2022-11-11] MEDS: cefTRIAXone SODIUM 2,000 MG in DEXTROSE 5% 50 ML IV SCH (12:24)
--- NOTE | 2022-11-11 13:01 | Gynecologic Progress Note ---
Date of Service November 11, 2022 Assessment & Plan (1) Cellulitis, wound, post-operative: Plan: there has been little improvement since the starting of clinda and gent. I reviewed with pharmacy (Ceci Peña) the clinical course and treatment plan. Reviewed with the patient as well, sig redness and somewhat more pain today. She has been , but has stopped and is open to treatment options that are not compatable with . Will stop Gent Start Daptomycin and ceftriaxone for MRSA coverage and re-evaluate in 24 hours. Patient agreeable. Note her reaction to Vanco is discussed with her and pharmacy. She did feel better after initial ceftriaxone in ER. If no improvement by tomorrow am will consider CT scan to rule out collection, note no drainage from incision at this time, no obvious collection palpable. Admission and Anticipated Discharge Date Admission Date: November 10, 2022 Results & Data Vital Signs (Past 12 Hours) Vital Signs Temp Pulse Pulse Resp BP Pulse Ox O2 Del Method 11/11/22 07:14 98.1 F 83 17 125/76 98 Room Air 11/11/22 05:00 98.2 F 84 18 112/57 L 98 Room Air PG Care Time/CCT Total # of Minutes Spent Total Time Spent with Patient: Total time spent is greater than 50% in coordination of care (as documented) at patient's floor/unit and/or counseling patient: Coding Level of Care Code None Diagnoses Cellulitis, wound, post-operative T81.49XA
[2022-11-11] MEDS: DAPTOmycin 300 MG in SYRINGE 0 ML IV SCH (13:15)
[2022-11-11] MEDS ORDERED: DEXTROSE 5% IV SCH (16:00)
[2022-11-11] MEDS ORDERED: GENTAMICIN SULFATE IV SCH (16:00)
[2022-11-12] MEDS: CLINDAMYCIN/D5W 600 MG/50 ML BAG IV SCH ×3 (05:50→21:32)
[2022-11-12 06:12] LABS: Hematocrit (blood only) 31.9 % (37.0-47.0); Hemoglobin 10.5 g/dl (12.0-16.0); Mean Corpuscular Hemoglobin 28.2 pg (25.0-34.0); Mean Corpuscular Hgb Conc 32.9 g/dL (32.0-36.0); Mean Corpuscular Volume 85.8 fL (80.0-100.0); Mean Platelet Volume 9.9 fL (9.4-12.4); Platelet Count 368 K/uL (130-400); RDW Coefficient of Variation 13.6 % (11.5-14.5); RDW Standard Deviation 42.4 fL (36.4-46.3); Red Blood Count 3.72 M/uL (4.20-5.40); White Blood Count 11.49 K/ul (4.8-10.8)
[2022-11-12 06:31] LABS: Creatinine Clr Calc Pharmacy 145.9 ml/min; Est GFR (African American) 142.9 ml/min; Est GFR (Non-African American) 123.3 ml/min
--- NOTE | 2022-11-12 07:37 | Gynecologic Progress Note ---
Date of Service November 12, 2022 Assessment & Plan (1) Cellulitis, wound, post-operative: Plan: Physical exam reveals the incision is nontender it seems less indurated and there certainly is less redness I can see no collections or drainage She is markedly improved on her new antibiotic correct regimen of daptomycin ceftriaxone and clindamycin would recommend continuing this until at least later today and then potentially switching to oral antibiotics and home tomorrow reviewed with the patient Admission and Anticipated Discharge Date Admission Date: November 10, 2022 Subjective The patient is markedly improved today says her pain is improved she is afebrile her white count has dropped to 11 she notices less redness on the incision Results & Data Vital Signs (Past 12 Hours) Vital Signs Temp Pulse Resp BP Pulse Ox O2 Del Method 11/11/22 23:30 98.2 F 78 18 115/69 98 Room Air 11/11/22 19:45 98.6 F 80 18 115/68 97 Room Air PG Care Time/CCT Total # of Minutes Spent Total Time Spent with Patient: Total time spent is greater than 50% in coordination of care (as documented) at patient's floor/unit and/or counseling patient: Coding Level of Care Code None Diagnoses Cellulitis, wound, post-operative T81.49XA
[2022-11-12] MEDS: PRENATAL VITAMIN 1 TAB PO SCH (07:58)
[2022-11-12] MEDS: DOCUSATE SODIUM 100 MG CAP PO SCH ×2 (07:59→21:32)
[2022-11-12] MEDS: cefTRIAXone SODIUM 2,000 MG in DEXTROSE 5% 50 ML IV SCH (13:01)
[2022-11-12] MEDS: DAPTOmycin 300 MG in SYRINGE 0 ML IV SCH (13:47)
--- NOTE | 2022-11-12 20:37 | Obstetrical Progress Note ---
Date of Service November 12, 2022 Assessment & Plan (1) Cellulitis, wound, post-operative: Plan Patient afebrile throughout her stay, and with marked improvement in erythema and edema associated with abdominal wall cellulitis. Notably, she shows me the initial photo of her erythema and the "after" photo with just rocephin and several hours of improvement, and it's impressively better. However, she has required Daptomycin and Clinda to maintain that improvement here, and conversion to PO regimen is therefore somewhat tricky. Likely options for oral treatment include Bactrim (as Dapto is offering MRSA coverage and VRE coverage in this patient who got redness of the face with Vanco which was stopped), and Clindamycin. Will try to transition to PO tomorrow and if well tolerated can go home with close outpatient f/u. Subjective Patient visited in 404 with FOB and baby. Readmission day 3 with cellulitis, improved markedly on regimen of Clindamycin, Daptomycin and Ceftriaxone. Patient had mentioned to RN today that she hoped I could come by this evening so I could compare personally between this evening and tomorrow morning to assess for changes before making any decisions for discharge home. Physical Exam Genitourinary Has marking on skin with pen dated today. Inside this marking, pale erythema is still present, and woody edematous texture to the skin is palpable. However there is no fluctuance, and the incision line remains well approximated without drainage. Some residual glue removed from the actual suture line by this physician to ensure drainage would not present itself once the glue seal was removed, and the incision still remains dry and approximated end to end. Results & Data Vital Signs (Past 12 Hours) Vital Signs Temp Pulse Resp BP Pulse Ox O2 Del Method 11/12/22 16:18 98.2 F 80 16 111/63 97 Room Air 11/12/22 11:30 98.2 F 101 H 16 111/70 96 Room Air
--- NOTE | 2022-11-13 05:13 | Obstetrical Progress Note ---
Date of Service <Martinez Watters MD - Last Filed: 11/13/22 08:00> November 13, 2022 Assessment & Plan <Martinez Watters MD - Last Filed: 11/13/22 08:00> (1) Cellulitis, wound, post-operative: Plan Patient's cellulitis is currently stable and although it remains erythematous, indurated, and somewhat swollen, it is not worsening. Currently patient is on clindamycin, daptomycin, and ceftriaxone IV. Patient is planned to transition to oral clindamycin today in conjunction with oral Bactrim. Depending on how the patient tolerates the oral clindamycin and Bactrim, she may be discharged later today. <Ceci Roberts MD - Last Filed: 11/13/22 08:12> (1) Cellulitis, wound, post-operative: Plan Patient's cellulitis is currently stable and although it remains erythematous and indurated, it is not worsening. Currently patient is on clindamycin, daptomycin, and ceftriaxone IV. Patient is planned to transition to oral clindamycin today in conjunction with oral Bactrim. Depending on how the patient tolerates the oral clindamycin and Bactrim, she may be discharged later today. Subjective <Martinez Watters MD - Last Filed: 11/13/22 08:00> Ambulation: ambulating normally Voiding: no voiding problems and no incontinence Passing Gas:: Yes Diet Tolerance:: regular diet Lochia:: Small (very little) Feeding Type:: bottle feeding (formula and breast feeding planned) Current Pain Level(1-10): 3 (when being touched (otherwise 0)) 22 yo F s/p C/S from 11/02/22 and status day 4 post readmission for cellulitis Constitutional: no fever or no chills Respiratory: no cough or no dyspnea Cardiovascular: no chest pain or no palpitations Integumentary: + wounds and + erythema Continued region of cellulties around the C/S site, no real signs of decreased redness, firmness, swelling in that genearl area <Ceci Roberts MD - Last Filed: 11/13/22 08:12> Pen marking around induration/erythema from 11/12. Continued edema inside this line. Faint erythema persists but is not worsening, and may be receding slightly, though is not fully resolved. Incision itself c/d/i without drainage. No collection. Physical Exam <Martinez Watters MD - Last Filed: 11/13/22 08:00> Respiratory normal respiratory effort, lungs clear to auscultation Cardiovascular RRR, no murmur, no edema Gastrointestinal (Abdomen) Inspection/Auscultation: + abdominal edema and + abdominal surgical incision Results & Data <Martinez Watters MD - Last Filed: 11/13/22 08:00> Vital Signs (Past 12 Hours) Vital Signs Temp Pulse Pulse Resp BP Pulse Ox O2 Del Method 11/12/22 23:00 37.2 C 81 16 118/62 96 Room Air 11/12/22 20:05 36.7 C 92 H 16 127/65 94 Room Air <Ceci Roberts MD - Last Filed: 11/13/22 08:12> Co-Signing Physician Notes Resident Physician Supervision Note: I interviewed and examined the patient. Discussed with Dr. Watters and agree with findings and plan as documented in the note. Any exceptions or clarifications are listed here: Will transition to PO maintaining MRSA coverage as provided by the Daptomycin as best we can in oral formulation. Assuming patient tolerates oral doses well, and remains afebrile without worsening today, likely D/C this afternoon/evening. Documented By: Ceci Roberts MD, FACOG
[2022-11-13] MEDS: CLINDAMYCIN/D5W 600 MG/50 ML BAG IV SCH (05:35)
[2022-11-13 07:19] LABS: Est GFR (African American) 147.3 ml/min; Est GFR (Non-African American) 127.1 ml/min
[2022-11-13] MEDS ORDERED: SULFAMETHOXAZOLE/TRIMETHOPRIM DS 800/160MG TAB PO SCH (09:00)
[2022-11-13] MEDS: PRENATAL VITAMIN 1 TAB PO SCH (09:18)
[2022-11-13] MEDS: DOCUSATE SODIUM 100 MG CAP PO SCH (09:18)
[2022-11-13] MEDS ORDERED: CLINDAMYCIN HCL 150 MG CAP PO SCH (12:00)
== END 2022-11-13 13:20 | disposition home or self-care (01) | DRG 776 ==
LOC: 40.0